=== PATIENT | male | born 1970 ===

== ENCOUNTER 2022-10-31 05:52 | Day surgery (SDC) | payer OTHER ==
[~2022-10-31 05:52] MED LIST: ATORVASTATIN CA20 MG PO; SYNTHROID112 MCG PO
== END 2022-10-31 18:30 | disposition home or self-care (01) ==
LOC: CIR.AMB 05:52
PROVIDERS: ATTEND Surgery
DX: K40.30 Unilateral inguinal hernia, with obstruction, without gangrene, not specified as recurrent (principal); Z20.822 Contact with and (suspected) exposure to COVID-19; R73.03 Prediabetes; E03.9 Hypothyroidism, unspecified